=== PATIENT | male | born 1950 | race Caucasian/White ===

== ENCOUNTER 2019-04-16 20:01 | Emergency (ER) | payer OTHER, BC ==
[~2019-04-16] VITALS: Ht 188 cm; Wt 97.5 kg
[2019-04-16] MEDS ORDERED: ALBU90OI61 INH (20:53)
[2019-04-16] MEDS ORDERED: HYDCHL25 PO (20:53)
[2019-04-16] MEDS ORDERED: Cephalexin500 M1 PO (22:32)
== END 2019-04-16 22:52 | disposition home or self-care (01) ==
LOC: ER 20:01
DX: S91.111A Laceration without foreign body of right great toe without damage to nail, initial encounter (principal); S91.114A Laceration without foreign body of right lesser toe(s) without damage to nail, initial encounter; I10 Essential (primary) hypertension; X58.XXXA Exposure to other specified factors, initial encounter
CPT/HCPCS: 12001; 73630; 90471; 90714; 99283-25

== ENCOUNTER → 2019-12-14 | Outpatient (CLI) | payer BC, OTHER ==
[~2019-12-14] MED LIST: ALBU90OI61 INH; Cephalexin500 M1 PO; HYDCHL25 PO
[2019-12-14 09:28] LABS: BASOPHILS ABSOLUTE AUTO 0.03 K/mm3 (0.00-0.23); BASOPHILS PERCENT AUTO 0 % (0-2); EOSINOPHILS ABSOLUTE AUTO 0.13 K/mm3 (0.00-0.68); EOSINOPHILS PERCENT AUTO 1 % (0-6); Hematocrit 44.6 % (37.0-53.0); Hemoglobin 15.7 g/dL (13.5-17.5); IMMATURE GRAN ABSOLUTE AUTO 0.05 K/mm3 (0.00-0.10); IMMATURE GRAN PERCENT AUTO 0 % (0-1); LYMPHOCYTES ABSOLUTE AUTO 1.74 K/mm3 (0.84-5.20); LYMPHOCYTES PERCENT AUTO 12 % (21-46); MONOCYTES ABSOLUTE AUTO 0.95 K/mm3 (0.16-1.47); MONOCYTES PERCENT AUTO 7 % (4-13); Mean Corpuscular HGB 30.7 pg (26.0-34.0); Mean Corpuscular HGB Conc 35.2 g/dL (31.5-36.5); Mean Corpuscular Volume 87 fL (80-100); Mean Platelet Volume 10.9 fL (9.1-12.4); NEUTROPHILS ABSOLUTE AUTO 11.42 K/mm3 (1.96-9.15); NEUTROPHILS PERCENT AUTO 80 % (41-73); Platelet Count 231 K/mm3 (150-400); RDW Coefficient Variation 12.9 % (11.7-14.2); RDW Standard Deviation 41.1 fL (35.1-46.3); Red Blood Cell Count 5.11 M/mm3 (4.30-5.90); White Blood Cell Count 14.32 K/mm3 (4.00-11.30)
== END | disposition home or self-care (01) ==
LOC: LAB SHORT 09:17 → LAB EV 09:17
PROVIDERS: Physician Assistant
DX: R10.32 Left lower quadrant pain (principal)
CPT/HCPCS: 85025

== ENCOUNTER → 2020-04-07 | Outpatient (CLI) | payer BC, OTHER ==
[2020-04-07 09:59] LABS: Campylobacter Sp Not Detected (NOT DETECT)
[2020-04-07 10:00] LABS: Adenovirus F 40/41 Not Detected (NOT DETECT); Astrovirus Not Detected (NOT DETECT); Cryptosporidium Not Detected (NOT DETECT); Cyclospora Cayetanensis Not Detected (NOT DETECT); E. Coli O157 Not Detected (NOT DETECT); Entamoeba Histolytica Not Detected (NOT DETECT); Enteroaggregative E. coli-EAEC Not Detected (NOT DETECT); Enteropathogenic E. coli-EPEC Not Detected (NOT DETECT); Enterotoxigenic E. coli-ETEC Not Detected (NOT DETECT); Giardia Lamblia Not Detected (NOT DETECT); Norovirus GI/GII Not Detected (NOT DETECT); Plesiomonas Shigelloides Not Detected (NOT DETECT); Rotavirus A Not Detected (NOT DETECT); Salmonella Sp Not Detected (NOT DETECT); Sapovirus Not Detected (NOT DETECT); Shiga Toxin-prod E. coli-STEC Not Detected (NOT DETECT); Shigella/Enteroin E. coli-EIEC Not Detected (NOT DETECT); Vibrio Cholerae Not Detected (NOT DETECT); Vibrio Sp Detected (NOT DETECT); Yersinia Enterocolitica Not Detected (NOT DETECT)
== END | disposition home or self-care (01) ==
LOC: LAB 07:43 → LAB SHORT 07:43 → LAB FUT 04-04 15:50
PROVIDERS: Internal Medicine Gastroenterology
DX: A04.71 Enterocolitis due to Clostridium difficile, recurrent (principal)
CPT/HCPCS: 0097U

== ENCOUNTER → 2020-06-15 | Outpatient (CLI) | payer BC, OTHER | END | disposition home or self-care (01) | LOC: PLD 09:53 → LAB SHORT 09:53 | DX: A04.71 Enterocolitis due to Clostridium difficile, recurrent (principal) | CPT/HCPCS: 87015; 87045; 87046; 87177; 87205; 87209; 87493; 87899 ==

== ENCOUNTER 2022-12-03 07:03 | Emergency (ER) | payer OTHER ==
[~2022-12-03] VITALS: Ht 188 cm; Wt 95.2 kg
[2022-12-03] MEDS ORDERED: HYDCHL25 PO (07:24)
[2022-12-03] MEDS ORDERED: AMLODIPINE BESYL5 MG PO (07:24)
[2022-12-03] MEDS ORDERED: BENAZEPRIL HCL40 M4 PO (07:24)
[2022-12-03 08:41] LABS: Influenza A, PCR NEGATIVE (NEGATIVE); Influenza B, PCR NEGATIVE (NEGATIVE); Resp Syncytial Virus, PCR NEGATIVE (NEGATIVE); SARS-Cov-2 (COVID-19) PCR, MMC NEGATIVE (NEGATIVE)
[2022-12-03] MEDS ORDERED: AZIT250 PO (09:26)
== END 2022-12-03 09:33 | disposition home or self-care (01) ==
LOC: ER 07:03
PROVIDERS: Emergency Medicine
DX: J18.9 Pneumonia, unspecified organism (principal); F17.200 Nicotine dependence, unspecified, uncomplicated; Z20.822 Contact with and (suspected) exposure to COVID-19
CPT/HCPCS: 0241U; 71045; 94640; 94664

== ENCOUNTER → 2023-03-27 | Outpatient (CLI) | payer OTHER ==
[~2023-03-27] MED LIST changes: +AMLODIPINE BESYL5 MG PO; +ATOR40TA PO; +AZIT250 PO; +Aspir 8181 MG PO; +BENAZEPRIL HCL40 M4 PO; +CHANTIX1 MG PO; +SYMBICORT 160-4.6 GM INH
[2023-03-27 10:23] LABS: Albumin, Blood 3.8 g/dL (3.4-5.0); Albumin/Globulin Ratio 1.2 (0.8-1.8); Bilirubin, Total 0.6 mg/dL (0.1-1.0); Bun/Creatinine Ratio 18.6 (12.0-20.0); Calcium, Blood 9.1 mg/dL (8.5-10.1); Creatinine, Blood 1.02 mg/dL (0.60-1.20); Globulin, Blood 3.3 g/dL (2.2-4.0); Magnesium, Blood 2.6 mg/dL (1.6-2.4); Potassium, Blood 3.7 mmol/L (3.5-5.5); Thyroid Stimulating Hormone 0.89 uIU/mL (0.360-4.800); Total Protein, Blood 7.1 g/dL (6.4-8.2)
== END | disposition home or self-care (01) ==
LOC: LAB SHORT 08:43 → LAB 08:43
PROVIDERS: Internal Medicine Cardiovascular Disease
DX: I10 Essential (primary) hypertension (principal); R00.1 Bradycardia, unspecified; R06.02 Shortness of breath
CPT/HCPCS: 36415; 80053; 83735; 83880; 84443

== ENCOUNTER 2023-04-03 07:06 | Day surgery (SDC) | payer OTHER ==
[~2023-04-03] VITALS: Ht 188 cm; Wt 97.1 kg
[2023-04-03 08:09] LABS: BASOPHILS ABSOLUTE AUTO 0.03 K/mm3 (0.00-0.23); BASOPHILS PERCENT AUTO 0 % (0-2); EOSINOPHILS ABSOLUTE AUTO 0.19 K/mm3 (0.00-0.68); EOSINOPHILS PERCENT AUTO 2 % (0-6); Hematocrit 41.3 % (37.0-53.0); Hemoglobin 14.4 g/dL (13.5-17.5); IMMATURE GRAN ABSOLUTE AUTO 0.07 K/mm3 (0.00-0.10); IMMATURE GRAN PERCENT AUTO 1 % (0-1); LYMPHOCYTES ABSOLUTE AUTO 2.02 K/mm3 (0.84-5.20); LYMPHOCYTES PERCENT AUTO 25 % (21-46); MONOCYTES ABSOLUTE AUTO 0.68 K/mm3 (0.16-1.47); MONOCYTES PERCENT AUTO 8 % (4-13); Mean Corpuscular HGB 31.2 pg (26.0-34.0); Mean Corpuscular HGB Conc 34.9 g/dL (31.5-36.5); Mean Corpuscular Volume 90 fL (80-100); Mean Platelet Volume 10.8 fL (9.1-12.4); NEUTROPHILS ABSOLUTE AUTO 5.22 K/mm3 (1.96-9.15); NEUTROPHILS PERCENT AUTO 64 % (41-73); Platelet Count 246 K/mm3 (150-400); RDW Coefficient Variation 12.4 % (11.7-14.2); RDW Standard Deviation 40.9 fL (35.1-46.3); Red Blood Cell Count 4.61 M/mm3 (4.30-5.90); White Blood Cell Count 8.21 K/mm3 (4.00-11.30)
[2023-04-03 08:22] LABS: International Normalized Ratio 1.02; Prothrombin Time Results 10.7 Sec (9.7-11.5)
[2023-04-03 08:33] LABS: Bun/Creatinine Ratio 12.1 (12.0-20.0); Calcium, Blood 8.7 mg/dL (8.5-10.1); Creatinine, Blood 1.16 mg/dL (0.60-1.20); Potassium, Blood 3.8 mmol/L (3.5-5.5)
[2023-04-03 09:15] VITALS: BP 152/78
[2023-04-03 09:30] VITALS: BP 144/75
--- NOTE | 2023-04-03 09:30 | NUR ---
PATIENT ARRIVED SITTING UPRIGHT IN RECLINER CONVERSING APPROPRIATELY. R RADIAL SITE C/D/I SOFT/NONTENDER, NO EVIDENCE OF HEMATOMA, GOOD PLEUTH WAVE. PATIENT DENYING ANY PAIN. VSS ON ROOM AIR. SPOUSE AT BEDSIDE
--- NOTE | 2023-04-03 09:43 | NUR ---
PATIENT TOLEARTING PO INTAKE WELL. R RADIAL SITE C/D/I SOFT/NOTNENDER, NO EVIDENCE OF HEMATOMA. VSS ON ROOM AIR.
[2023-04-03 09:45] VITALS: BP 152/100
--- NOTE | 2023-04-03 09:58 | NUR ---
INITIAL 2 CC OF AIR REMOVED FROM R RADIAL TR BAND. SITE C/D/I SOFT/NONTENDER, GOOD PLEUTH WAVE. NO EVIDENCE OF BLEEDING. PATIENT DENYIING ANY PAIN. VSS ON ROOM AIR.
[2023-04-03 10:00] VITALS: BP 159/79
--- NOTE | 2023-04-03 10:45 | NUR ---
ALL AIR REMOVED FROM R RADIAL TR BAND. SITE C/D/I SOFT/NONTENDER, NO EVIDENCE OF HEMATOMA. PATIENT DENYING ANY PAIN. VSS ON ROOM AIR.
[2023-04-03 11:00] VITALS: BP 139/71
--- NOTE | 2023-04-03 11:15 | NUR ---
PATIENT DISCHARGED HOME AT THIS TIME. ALL PATIENT BELONGINGS AND PAPERWORK LEFT WITH PATIENT. R TR BAND REMOVED AND CLOTH DOT PLACED WITH ARM BOARD. SITE C/D/I SOFT/NONTENDER, NO EVIDENCE OF HEMATOMA. PIV REMOVED WITHOUT DIFFICULTY, CATHETER INTACT. PATIENT AMBULATING AND VOIDING TO RESTROOM WITHOUT DIFFICULTY. VSS ON RA. PATIENT WHEELED TO HOSPITAL ENTRANCE BY DISCHARGE VOLUNTEER, SPOUSE ABLE TO PROVIDE TRANSPORTATION HOME.
== END 2023-04-03 11:58 | disposition home or self-care (01) ==
LOC: MHTC 07:06
PROVIDERS: Internal Medicine Interventional Cardiology
DX: R94.39 Abnormal result of other cardiovascular function study (principal); I35.8 Other nonrheumatic aortic valve disorders; I25.10 Atherosclerotic heart disease of native coronary artery without angina pectoris; J44.9 Chronic obstructive pulmonary disease, unspecified; I10 Essential (primary) hypertension; Z79.82 Long term (current) use of aspirin
CPT/HCPCS: 76937; 80048; 85025; 85610; 93458; 99152; 99153; C1769; C1887; C1894; J1644; J2250; J3010; J7030; J7050; Q9967

== ENCOUNTER → 2023-06-11 | Outpatient (CLI) | payer OTHER ==
[~2023-06-11] MED LIST changes: +DICY20 PO
[2023-06-11 12:44] LABS: Adenovirus F 40/41 Not Detected (NOT DETECT); Astrovirus Not Detected (NOT DETECT); Campylobacter Sp Not Detected (NOT DETECT); Cryptosporidium Not Detected (NOT DETECT); Cyclospora Cayetanensis Not Detected (NOT DETECT); E. Coli O157 Not Detected (NOT DETECT); Entamoeba Histolytica Not Detected (NOT DETECT); Enteroaggregative E. coli-EAEC Not Detected (NOT DETECT); Enteropathogenic E. coli-EPEC Not Detected (NOT DETECT); Enterotoxigenic E. coli-ETEC Not Detected (NOT DETECT); Giardia Lamblia Not Detected (NOT DETECT); Norovirus GI/GII Not Detected (NOT DETECT); Plesiomonas Shigelloides Not Detected (NOT DETECT); Rotavirus A Not Detected (NOT DETECT); Salmonella Sp Not Detected (NOT DETECT); Sapovirus Not Detected (NOT DETECT); Shiga Toxin-prod E. coli-STEC Not Detected (NOT DETECT); Shigella/Enteroin E. coli-EIEC Not Detected (NOT DETECT); Vibrio Cholerae Not Detected (NOT DETECT); Vibrio Sp Not Detected (NOT DETECT); Yersinia Enterocolitica Not Detected (NOT DETECT)
== END | disposition home or self-care (01) ==
LOC: LAB SHORT 08:15 → LAB 08:15
PROVIDERS: Family Medicine
DX: R19.7 Diarrhea, unspecified (principal)
CPT/HCPCS: 87507

== ENCOUNTER 2023-06-12 06:09 | Emergency (ER) | payer OTHER ==
[~2023-06-12] VITALS: Ht 188 cm; Wt 99.8 kg
[~2023-06-12 06:09] MED LIST changes: -DICY20 PO
[2023-06-12 07:54] LABS: BASOPHILS ABSOLUTE AUTO 0.03 K/mm3 (0.00-0.23); BASOPHILS PERCENT AUTO 0 % (0-2); EOSINOPHILS ABSOLUTE AUTO 0.11 K/mm3 (0.00-0.68); EOSINOPHILS PERCENT AUTO 2 % (0-6); Hemoglobin 12.9 g/dL (13.5-17.5); IMMATURE GRAN ABSOLUTE AUTO 0.04 K/mm3 (0.00-0.10); IMMATURE GRAN PERCENT AUTO 1 % (0-1); LYMPHOCYTES ABSOLUTE AUTO 1.85 K/mm3 (0.84-5.20); LYMPHOCYTES PERCENT AUTO 24 % (21-46); MONOCYTES ABSOLUTE AUTO 0.68 K/mm3 (0.16-1.47); MONOCYTES PERCENT AUTO 9 % (4-13); Mean Corpuscular HGB 30.8 pg (26.0-34.0); Mean Corpuscular HGB Conc 34.9 g/dL (31.5-36.5); Mean Corpuscular Volume 88 fL (80-100); Mean Platelet Volume 10.8 fL (9.1-12.4); NEUTROPHILS ABSOLUTE AUTO 4.86 K/mm3 (1.96-9.15); NEUTROPHILS PERCENT AUTO 64 % (41-73); Platelet Count 225 K/mm3 (150-400); RDW Coefficient Variation 12.6 % (11.7-14.2); RDW Standard Deviation 40.2 fL (35.1-46.3); Red Blood Cell Count 4.19 M/mm3 (4.30-5.90); White Blood Cell Count 7.57 K/mm3 (4.00-11.30)
[2023-06-12 08:09] LABS: Albumin, Blood 3.7 g/dL (3.4-5.0); Albumin/Globulin Ratio 1.2 (0.8-1.8); Bilirubin, Total 0.6 mg/dL (0.1-1.0); Bun/Creatinine Ratio 10.8 (12.0-20.0); Calcium, Blood 8.8 mg/dL (8.5-10.1); Creatinine, Blood 1.02 mg/dL (0.60-1.20); Globulin, Blood 3.2 g/dL (2.2-4.0); Magnesium, Blood 2.1 mg/dL (1.6-2.4); Potassium, Blood 3.8 mmol/L (3.5-5.5); Total Protein, Blood 6.9 g/dL (6.4-8.2)
[2023-06-12] MEDS ORDERED: DICY20 PO (10:15)
[2023-06-12 10:33] VITALS: BP 162/84
== END 2023-06-12 10:34 | disposition home or self-care (01) ==
LOC: ER 06:09
PROVIDERS: Student in an Organized Health Care Education/Training Program
DX: R55 Syncope and collapse (principal); E86.0 Dehydration; R19.7 Diarrhea, unspecified; I11.0 Hypertensive heart disease with heart failure; I50.30 Unspecified diastolic (congestive) heart failure; E78.5 Hyperlipidemia, unspecified; Z79.899 Other long term (current) drug therapy; Z79.82 Long term (current) use of aspirin
CPT/HCPCS: 36415; 71046; 80053; 83735; 83880; 84484; 85025; 93005; 93010; 96360; 99284-25; A9270; J7030

== ENCOUNTER → 2024-08-12 | Outpatient (CLI) | payer OTHER ==
[~2024-08-12] MED LIST changes: +DICY20 PO
== END ==
LOC: LAB SHORT 18:16 → LAB 18:16
DX: L08.9 Local infection of the skin and subcutaneous tissue, unspecified (principal)
CPT/HCPCS: 87070; 87077; 87147; 87186; 87205

== ENCOUNTER 2025-07-20 07:16 | Day surgery (SDC) | payer OTHER ==
[~2025-07-20] VITALS: Ht 188 cm; Wt 93.9 kg
[2025-07-20] VITALS (8 sets, daily range): BP systolic 133–160; BP diastolic 77–96
[~2025-07-20 07:16] MED LIST changes: +CO-Q-10 PO; +KLOR-CON 1010 ME9 PO; +MOBIC15 MG PO
[2025-07-20] MEDS ORDERED: MAGNESIUM OXID500 MG PO (07:45)
--- NOTE | 2025-07-20 08:03 | NUR ---
PATIENT ADMITTED FOR LEFT KNEE GENICULATE ARTERY EMBOLIZATION. PRE PROCEDURE EKG READS A FLUTTER. EKG HAS ARTIFACT. AM RHYTHM SHOWS SINUS BRADYCARDIA RATE 50'S. PATIENT STATES THIS IS NORMAL FOR HIM. PER DR. SINCLAIR EKG IS SINUS NOT A FLUTTER, THIS INFORMATION RELAYED TO DR BALTAZAR.
[2025-07-20] MEDS ORDERED: Midazolam HCl 1MG / ML 2ML Vial ONE (08:10)
[2025-07-20] MEDS ORDERED: FentaNYL Citrate 50 MCG/ML 2 ML Injection ONE (08:11)
[2025-07-20] MEDS ORDERED: NS 1,000 ML IV ONE (08:11)
[2025-07-20] MEDS ORDERED: Heparin Sodium 1000 Units/ML 10ML MDV ONE (08:14)
[2025-07-20] MEDS ORDERED: Verapamil HCL 2.5 MG/ML 2ML Injection ONE (08:49)
[2025-07-20] MEDS ORDERED: Nitroglycerin 2 MG/20 ML BTL ONE (08:49)
--- NOTE | 2025-07-20 10:10 | NUR ---
PATIENT ARRIVED BACK TO RECOVERY ROOM SITTING UP IN BED. LEFT AT SITE WITH TEGADERM C/D/I SOFT/NONTENDER, NO EVIDENCE OF BLEEDING. DISTAL PULSES PALABLE. PATIENT DENYING ANY PAIN. VSS ON RA.
--- NOTE | 2025-07-20 10:44 | NUR ---
PATIENT TOLERATING PO INTAKE WELL. DISCHARGE INSTRUCTIONS REVIEWED WITH PATIENT AND SPOUSE. ALL QUESTIONS WERE ANSWERED. LEFT AT SITE C/D/I SOFT/NONTENDER, NO EVIDENCE OF BLEEDING. DISTAL PULSES PALPABLE.
--- NOTE | 2025-07-20 11:00 | NUR ---
PIV REMVOED WITHOUT DIFFICULTY, CATHETER INTACT. PATIENT AMBULATING IN RECOVERY ROOM WITHOUT DIFFICULTY. LEFT AT SITE C/D/I SOFT/NONTENDER, NO EVIDENCE OF BLEEDING. VSS ON RA.
--- NOTE | 2025-07-20 11:10 | NUR ---
PATIENT DISCHARGED HOME AT THIS TIME. PATIENT HAVING SOME MINOR PAIN IN AT LEFT INCISION SITE. DRESSING C/D/I SOFT/NONTENDER. VSS ON RA. PATIENT WHEELED TO HOSPITAL ENTRANCE AND SPOUSE ABLE TO PROVIDE TRANSPORTATION HOME. ALL PATIENT BELONGINGS AND PAPERWORK LEFT WITH PATIENT.
== END 2025-07-20 11:10 | disposition home or self-care (01) ==
LOC: MHTC 07:16
DX: M25.562 Pain in left knee (principal); I73.9 Peripheral vascular disease, unspecified; G89.29 Other chronic pain; Z87.891 Personal history of nicotine dependence; I10 Essential (primary) hypertension; Z79.899 Other long term (current) drug therapy
CPT/HCPCS: 36216; 37242; 75710; 75774; 76937; 99152; 99153; C1769; C1887; C1889; C1894; J1644; J2250; J3010; J7030; Q9967